=== PATIENT | female | born 1945 | race Caucasian/White ===

== ENCOUNTER 2023-10-23 07:00 | Day surgery (SDC) | payer MEDICARE, BC ==
[~2023-10-23 07:00] MED LIST: Sodium Chloride 0.9% 10 ML Syringe FLUSH PRN; Sodium Chloride 0.9% 10 ML Syringe FLUSH SCH
[2023-10-23] MEDS: Lactated Ringers 1,000 ML IV SCH (07:30)
[2023-10-23] MEDS: oxyCODONE ER 10 MG TAB.ER PO ONE (07:51)
[2023-10-23] MEDS: Acetaminophen 325 MG Tab PO ONE (07:51)
[2023-10-23] MEDS: Pregabalin 25 MG Cap PO ONE (07:51)
[2023-10-23] MEDS ORDERED: Midazolam 1 MG/ML 2 ML SDV ONE (07:55)
[2023-10-23] MEDS ORDERED: Propofol 200 MG/20 ML SDV ONE (07:55)
[2023-10-23] MEDS ORDERED: ceFAZolin 2 GM Vial ONE (08:20)
[2023-10-23] MEDS ORDERED: ePHEDrine 50 MG/ML SDV ONE (08:38)
[2023-10-23] MEDS: Tranexamic Acid 1,000 MG/10 ML Vial ONE (09:04)
[2023-10-23] MEDS: Morphine 8 MG, EPINEPHrine 0.3 MG, Cefuroxime 750 MG, Ketorolac 30 MG, Sodium Chloride ... PRN (09:04)
[2023-10-23] MEDS: Vancomycin 1 GM SDV ONE (09:04)
[2023-10-23] MEDS ORDERED: Lactated Ringers 1,000 ML IV ONE (09:30)
[2023-10-23] MEDS ORDERED: Ropivacaine 0.5% 5 MG/ML 30 ML SDV ONE (09:37)
[2023-10-23] MEDS ORDERED: fentaNYL 100 MCG/2 ML SDV IVPUSH PRN (10:14)
[2023-10-23] MEDS ORDERED: HYDROmorphone 0.5 MG/0.5 ML Syringe IVPUSH PRN (10:14)
[2023-10-23] MEDS: Ondansetron 4 MG/2 ML SDV IVPUSH PRN (11:22)
[2023-10-23] MEDS: oxyCODONE 5 MG Tab PO PRN (14:29)
== END 2023-10-23 14:55 | disposition home or self-care (01) ==
LOC: JD.SDS 07:00
PROVIDERS: ATTEND Orthopaedic Surgery
DX: M17.11 Unilateral primary osteoarthritis, right knee (principal); E11.9 Type 2 diabetes mellitus without complications; E78.2 Mixed hyperlipidemia; M81.0 Age-related osteoporosis without current pathological fracture; Z79.82 Long term (current) use of aspirin; Z79.899 Other long term (current) drug therapy; Z91.048 Other nonmedicinal substance allergy status
CPT/HCPCS: 0055T; 27447; 73560; 97110; 97161; A9270; C1713; C1776; J0171; J0690; J0697; J1885; J2250; J2270; J2405; J2704; J2795; J3370; J7120; 01402; 99100; J3490